=== PATIENT | male | born 1975 | race Caucasian/White ===

== ENCOUNTER 2019-12-24 06:06 | Emergency (ER) | payer OTHER ==
[~2019-12-24] VITALS: Ht 180.3 cm; Wt 109.0 kg
[2019-12-24] MEDS ORDERED: BENA20TA82 PO (07:02)
[2019-12-24] MEDS ORDERED: BUSP10TA11 PO (07:02)
[2019-12-24] MEDS ORDERED: ESCI20TA45 PO (07:02)
[2019-12-24] MEDS ORDERED: LORA-269 PO (07:03)
[2019-12-24] MEDS ORDERED: SIMV5TAB58 PO (07:07)
[2019-12-24] MEDS ORDERED: FLO0.4C PO (07:07)
[2019-12-24] MEDS ORDERED: TEMA15CA5 PO (07:07)
[2019-12-24 07:12] VITALS: BP 146/85
== END 2019-12-24 07:15 | disposition home or self-care (01) ==
LOC: ER 06:07
DX: I10 Essential (primary) hypertension (principal); E78.00 Pure hypercholesterolemia, unspecified; Z88.8 Allergy status to other drugs, medicaments and biological substances; Z79.899 Other long term (current) drug therapy
CPT/HCPCS: 93005; 99283

== ENCOUNTER 2025-10-14 04:26 | Emergency (ER) | payer OTHER ==
[~2025-10-14] VITALS: Ht 180.3 cm; Wt 100.0 kg
[~2025-10-14 04:26] MED LIST: BENA20TA82 PO; BUSP10TA11 PO; ESCI20TA39 PO; LORA-269 PO; SIMV5TAB58 PO; TAMS-55 PO; TEMA15CA5 PO
--- NOTE | 2025-10-14 05:08 | VISIT NOTE ---
ED Rapid Medical Assessment History 50-year-old male presents for evaluation of left-sided chest pain/left upper quadrant abdominal pain that woke him from sleep at 2:00 a.m., proximally 3 hours prior to arrival. He states that he ate a 10 mg THC gummy shortly before dinner, got lunches, ate a lot of junk food including calsone, drank a soda, and had some ice cream. He describes pain as dull and achy, can compares it to brain freeze. No palliating or aggravating factors. Did not attempt to treat it with a anything other than Tums. The Tums did not help. Denies shortness a breath. Exam: Physical examination: GENERAL: Awake, alert, oriented, GCS 15, no apparent distress, non-toxic appearing, answers questions, follows commands appropriately. HEENT: Atraumatic, normocephalic, pupils equal, extraocular muscles intact Active gross movements, sclerae anicteric, mucus membranes moist, no stridor. NECK: Midline, no JVD CARDIOVASCULAR: Good skin perfusion without evidence of pallor, mottling. PULMONARY: Nonlabored, symmetric chest rise, no audible wheezing, no accessory muscle use, no respiratory distress, speaking in full sentences. GASTROINTESTINAL: Not distended. NEUROLOGIC: Lucid with normal mental status. Normal facial symmetry. Moves all extremities symmetrically and with purpose. No truncal ataxia. Speech is fluid without evidence of dysarthria or aphasia, no focal deficits appreciated. EXTREMITIES: Acute deformities Skin: warm, dry PSYCHIATRIC: Normal affect, normal insight, normal concentration. Focused exam: [] Assessment and Plan With respect to her abdominal pain, Differential diagnosis considered includes acute appendicitis, acute cholecystitis, pancreatitis, gastritis, PUD, diverticulitis, mesenteric ischemia, abdominal aortic aneurysm, bowel obstruction, enteritis, colitis, fecal impaction, volvulus, IBS, inflammatory bowel disease, specific food intolerance, peritonitis, perforated viscous, malignancy, UTI, abscess, and abdominal pain NOS. History, physical exam, and workup exclude many of the more serious causes listed above. With a respect to chest pain, Differential diagnosis considered includes chest wall pain, pleurisy, pneumonia, pulmonary embolus, GERD, esophagitis, gastritis, anxiety, stress reaction, costochondritis, acute coronary syndrome, aortic dissection, pericarditis, myocarditis, or pneumothorax. Aortic/great vessels dissection was considered but it is unlikely based on absence of ripping, tearing, migratory chest pain, absence of syncope or focal neurologic deficits, physical examination indicating equal and symmetric pulses. HILLARY MARY DO Oct 14, 2025 05:08
[2025-10-14 05:14] LABS: MEAN PLATELET VOLUME 8.0 FL (7.4-10.4); RED CELL DISTRIBUTION WIDTH 13.0 % (11.5-14.5)
--- NOTE | 2025-10-14 05:16 | ELECTROCARDIOGRAPH REPORT ---
[facility] Test Date: 2025-10-14 Test Time: 05:12:49 Pat Name: HILARIO HERNANDEZ Department: [facility] Patient ID: [id number] Room: Gender: M [employer] Chair: : 1975 Requested By: HILLARY MARY Order Number: [id number] Reading MD: Dr. CYRUS Villeda Measurements Intervals [place] Rate: 69 P: 75 WI: 191 QRS: 78 QRSD: 106 T: 43 QT: 390 QTc: 418 Interpretive Statements Sinus rhythm Electronically Signed On 10-15-2025 13:08:[address] CYRUS Villeda Please click the below link to view image of tracing.
[2025-10-14] MEDS: mag hydrox/Alum hydrox/simeth 30ml oral suspension PO ONE (05:23)
[2025-10-14] MEDS: LIDOcaine 2% Viscous 15ml cup MM ONE (05:23)
[2025-10-14] MEDS: normal saline 1000ML IV soln IVB ONE (05:26)
[2025-10-14 05:31] LABS: CREATININE 0.83 MG/DL (0.60-1.10); TOTAL CARBON DIOXIDE 30.3 MMOL/L (24-32); eCRCL 112 ML/MIN; eGFR > 90 ML/MIN
[2025-10-14 05:37] LABS: PRO BRAIN NATRIURETIC PEPTIDE 36 PG/ML (0-125)
[2025-10-14] MEDS ORDERED: iohexol 300mg/ml 100ml inj. ONE (05:38)
--- NOTE | 2025-10-14 06:07 | RADIOLOGY REPORT ---
CHEST RADIOGRAPH Indication: chest pain Technique: Single frontal view of the chest was obtained COMPARISON: None FINDINGS: Lines and Tubes: None Lungs: Clear Pleura: No effusion. No pneumothorax. Cardiomediastinal contours: Unremarkable Bones: Unremarkable IMPRESSION: 1. No acute disease.
--- NOTE | 2025-10-14 06:24 | RADIOLOGY REPORT ---
Exam: CT CT ABDOMEN PELVIS W/ IV CONTRAST History: LUQ pain COMPARISON: None Technique: Multidetector spiral CT of the abdomen and pelvis was performed from lung bases to pubic symphysis. Intravenous contrast was administered during this examination. Portal venous imaging was obtained. Axial, coronal and sagittal multiplanar reformats were performed by the technologist on a separate workstation. Radiation Dose : 1. Abdomen/Pelvis: CTDIvol 35.13 mGy, DLP 2116.35 mGy*cm. CONTRAST: Type of contrast: Omnipaque 300 Contrast injected: 100 ml Findings: Lung Bases: No acute or significant lung base finding. Left basilar atelectasis. Normal heart size. No pleural or pericardial effusion. Liver: The liver is normal in size. No focal lesions. Normal hepatic vascular enhancement. Gallbladder and Biliary Tree: Cholelithiasis. Spleen: Unremarkable Pancreas: The pancreas is normal in appearance without focal lesions or abnormal enhancement. Adrenal Glands: Unremarkable Kidneys: No nephrolithiasis or hydronephrosis. 1.7 cm left inferior pole renal cortical cysts. Bladder: Unremarkable Bowel: The stomach is grossly normal in appearance. Retained colorectal stool. Small bowel and colon are otherwise normal in caliber and distribution. The appendix is normal. Ascites: Absent Lymphadenopathy: No mesenteric, retroperitoneal or periportal lymphadenopathy. Abdominal Wall and Mesentery: Unremarkable. Vasculature: The visualized abdominal aorta is normal in size and caliber. Abdominal and pelvic vessels demonstrate normal enhancement. Pelvic Organs: Unremarkable. Bilateral fat containing inguinal hernias. Musculoskeletal: No aggressive focal bony lesions, acute fractures or dislocation. IMPRESSION: 1. No acute abdominal or pelvic finding. 2. Cholelithiasis. 3. Retained colorectal stool. Radiation optimization: All CT scans at this facility use at least one of these dose optimization techniques: automated exposure control mA and/or kV adjustment per patient size (includes targeted exams where dose is matched to clinical indication) or iterative reconstruction.
[2025-10-14 06:46] LABS: LEUKOCYTE ESTERASE ,URINE NEGATIVE (Neg); OCCULT BLOOD,URINE NEGATIVE (Neg)
[2025-10-14 07:00] LABS: UA COLLECTION TYPE CLN CATCH MIDSTREAM
[2025-10-14 07:02] LABS: MUCUS STRANDS NONE SEEN /LPF (Neg); NITRITES, URINE NEGATIVE (Neg); SQUAMOUS EPITHELIAL CELL,UR NONE SEEN /LPF (FEW)
[2025-10-14 07:03] LABS: AMORPHOUS PHOSPHATES 1+
--- NOTE | 2025-10-14 08:22 | Physician Documentation ---
History of Present Illness Chief Complaint: Abdominal Pain Stated Complaint: UPPER ABDOMINAL DISCOMFORT Time Seen by MD: 07:52 Primary Medical Doctor: none Mode of Arrival: POV HPI The patient is a 50-year-old male with a history of recurrent constipation who presents with abdominal pain over the past day. He reports having had a small bowel movement this morning. He also reports eating a generally poor diet with lots of highly processed foods and lots of sugary foods. Medication Reconciliation Allergies: Coded Allergies: formaldehyde (Verified Allergy, Severe, 10/14/25) nickel (Verified Allergy, Severe, 10/14/25) cefprozil (Verified Allergy, Unknown, 10/14/25) Uncoded Allergies: NEOPRENE (Allergy, Severe, 12/24/19) Scheduled Benazepril Hcl* (Lotensin*), 1 TAB PO BID, (Reported) Lorazepam (Ativan), 1 TAB PO Q12H, (Reported) Simvastatin* (Zocor*), 1 TAB PO HS, (Reported) Tamsulosin Hcl* (Flomax*), 1 CAP PO DAILY, (Reported) Scheduled PRN Buspirone Hcl* (Buspar*), 1 TAB PO BID PRN for anxiety, (Reported) Miscellaneous Medications Escitalopram Oxalate (Escitalopram Oxalate), 20 MG PO, (Reported) Temazepam (Restoril), 15 MG PO, (Reported) Past Medical History Past Medical History: High Cholesterol, Hypertension Past Surgical History: no surgical history Smoking Status: Never smoker Alcohol Use: None Drug Use: none Lives with: Spouse Lives In: Home Occupation: employed Review of Systems ROS Constitutional: Denies chills, fatigue, fever, weight gain or weight loss. HEENT: Denies hearing loss, sinus pressure or visual changes. Respiratory: Denies cough, shortness of breath or wheezing. Cardiovascular: Denies chest pain, pain while walking (claudication), edema or palpitations. Gastrointestinal: Abdominal pain and constipation. No blood in stool, diarrhea, heartburn, loss of appetite, nausea or vomiting. Genitourinary: Denies painful urination (dysuria), excessive amount of urine (polyuria) or urinary frequency. Metabolic/Endocrine: Denies cold intolerance, heat intolerance, excessive thirst (polydipsia) or excessive hunger (polyphagia). Neurological: Denies dizziness, extremity numbness, extremity weakness, headaches, seizures or tremors. Psychiatric: Denies anxiety or depression. Integumentary: Denies breast discharge, breast lump, hives, mole change(s), rash or skin lesion. Musculoskeletal: Denies back pain, joint pain, joint swelling or neck pain. Hematologic: Denies easily bleeding, easily bruises, lymphedema or issues with blood clots. Immunologic: Denies food allergies or seasonal allergies. Physical Exam Vital Signs: Temperature: 97.3, Source: Temporal, Heart Rate: 77, Respiratory Rate: 18, BP: 150/78, Pulse Oximetry: 97, Weight: 100.000 Oxygen Flow Rate: 0 Physical Exam Physical Exam Vitals and nursing note reviewed. Constitutional: General: Patient is awake, alert, oriented x 4 in no acute distress and well appearing. Speech is clear and lucid. Appearance: Normal appearance. Patient is not ill-appearing, toxic-appearing or diaphoretic. HENT: Head: Normocephalic and atraumatic. Mouth/Throat: Mouth: Mucous membranes are moist. Pharynx: Oropharynx is clear. Eyes: General: No scleral icterus. Extraocular Movements: Extraocular movements intact. Pupils: Pupils are equal, round, and reactive to light. Neck: Supple, no Kernig or Brudzinski sign. Cardiovascular: Rate and Rhythm: Normal rate and regular rhythm. Heart sounds: No murmur heard. Pulmonary: Effort: No respiratory distress. Breath sounds: No wheezing, rhonchi or rales. Abdominal: General: There is no distension. Palpations: There is no fluid wave, hepatomegaly or mass. Tenderness: There is no abdominal tenderness. There is no guarding. Musculoskeletal: General: No swelling or deformity. Skin: Coloration: Skin is not jaundiced. Findings: No erythema or rash. Neurological: Mental Status: Patient is alert. Progress Results/Orders Results/Orders Medications Received in ER Medications (Trade) Dose Ordered Sig/Lisbeth Route PRN Reason Start Time Stop Time Status Last Admin Dose Admin (0.9% sodium chloride (NS) 1000ml IV soln) 1,000 ml ONCE ONCE IVB 10/14/25 05:05 10/14/25 05:07 DC 10/14/25 05:26 1,000 ML (Maalox oral suspension) 30 ml ONCE ONCE PO 10/14/25 05:05 10/14/25 05:07 DC 10/14/25 05:23 30 ML (Bentyl capsule) 20 mg ONCE ONCE PO 10/14/25 05:05 10/14/25 05:07 DC 10/14/25 05:24 20 MG (Compazine inj) 10 mg ONCE ONCE IV 10/14/25 05:05 10/14/25 05:07 DC 10/14/25 05:26 10 MG (Xylocaine 2% Viscous 15mL cup) 20 ml ONCE ONCE MM 10/14/25 05:05 10/14/25 05:07 DC 10/14/25 05:23 20 ML Vital Signs 10/14/25 10/14/25 10/14/25 10/14/25 04:29 04:51 05:55 06:45 Temp 97.3 Pulse 67 61 75 Resp 15 16 18 16 B/P (MAP) 162/95 161/95 (117) 162/91 (114) Pulse Ox 100 98 97 O2 Flow Rate 0 0 10/14/25 07:49 Pulse 77 Resp 18 B/P (MAP) 150/78 (102) Pulse Ox 97 O2 Flow Rate 0 Laboratory Tests Test 10/14/25 05:05 10/14/25 06:08 10/14/25 07:17 White Blood Count 5.9 Red Blood Count 5.28 Hemoglobin 16.0 Hematocrit 46.8 Mean Corpuscular Volume 88.7 Mean Corpuscular Hemoglobin 30.4 Mean Corpuscular Hemoglobin Concent 34.2 Red Cell Distribution Width 13.0 Platelet Count 256 Mean Platelet Volume 8.0 Neutrophils (%) (Auto) 67.6 Lymphocytes (%) (Auto) 22.5 Monocytes (%) (Auto) 7.2 Eosinophils (%) (Auto) 1.3 Basophils (%) (Auto) 1.4 H Neutrophils # (Auto) 4.0 Lymphocytes # (Auto) 1.3 Monocytes # (Auto) 0.4 Eosinophils # (Auto) 0.1 Basophils # (Auto) 0.1 CBC Comment Sodium Level 142 Potassium Level 3.8 Chloride Level 105 Carbon Dioxide Level 30.3 Anion Gap 7 L Blood Urea Nitrogen 10 Creatinine 0.83 Estimated GFR/1.73 m2 > 90 BUN/Creatinine Ratio 12.0 Glucose Level 176 H Calcium Level 8.8 Magnesium Level 2.0 Total Bilirubin 0.5 Aspartate Amino Transf (AST/SGOT) 17 Alanine Aminotransferase (ALT/SGPT) 38 Alkaline Phosphatase 88 Troponin I High Sensitivity 75 Pro-B-Type Natriuretic Peptide 36 Total Protein 7.5 Albumin 4.0 Globulin 3.5 Albumin/Globulin Ratio 1.1 Lipase 34 Chemistry Comments Urine Specimen Description Cln catch midstream Urine Color Yellow Urine Clarity Slightly cloudy Urine pH 7.5 Urine Specific [place] 1.015 Urine Protein Negative Urine Glucose (UA) 250 H Urine Ketones Negative Urine Occult Blood Negative Urine Nitrite Negative Urine Bilirubin Negative Urine Urobilinogen 0.2 Urine Leukocyte Esterase Negative Urine RBC None seen Urine WBC None seen Urine Squamous Epithelial Cells None seen Urine Amorphous Phosphates 1+ Urine Bacteria None seen Urine Mucus None seen Urine Culture Indicated Not ind Volume Urine Centrifuged 10 ml Urine Comment Medical Decision Making Additional information obtaine: family Findings Differential Diagnosis Abdominal Pain include (but is not limited to) Esophagitis, Peptic Ulcer Disease, Perforated Ulcer, GERD, Pancreatitis, Gastritis, ACS, Esophageal Stricture, Zenker's Diverticulum and Cyclic Vomiting Syndrome. Physical examination was performed and showed no evidence of appendicitis or peritonitis. Labs were performed to evaluate for evidence of electrolyte abnormalities such as hyponatremia, hyperglycemia. Labs including LFT's and lipase were performed to evaluate for evidence of pancreatitis or hepatitis. Urine shows no evidence of infection. Radiology studies, ultrasound abdomen was performed to evaluate for biliary pathology or cholecystitis and shows no acute intra-abdominal pathology. Patient improved in the ER with IV pain medications, IV antiemetics, and IV hydration. CT scan showed retained colorectal stool. Differential Dx:Considerations: Aortic dissection, Appendicitis, Bowel obstruction, Cholangitis, Cholelithasis, Constipation, Diverticular disease, Inflammatory BD, Ischemic bowel, Pancreatitis, Urinary tract infection Departure Disposition: HOME / SELF CARE / HOMELESS Impression: Primary Impression: Constipation Condition: Stable Discharge Instructions: Chronic Constipation, Constipation, Adult Additional Instructions: You have been evaluated for abdominal pain and it appears this is due to ret ained colorectal stool (constipation). Please obtain magnesium citrate at the pharmacy and follow the directions. It is important that you generally improve your diet by avoiding processed foods and sugary foods. A healthy diet consisting of REAL FOOD will be the baird to half-way improvement. Referrals: NO PRIMARY CARE PROVIDER (PCP) Education Educated: Patient Educated regarding: diagnosis, treatment, prognosis, need for follow up Signature Scribe Signature: . Attestation: ROWENA CLARK MD Oct 14, 2025 08:22
[2025-10-14 08:35] VITALS: PULSE 63
[2025-10-14 08:52] VITALS: BP 152/82; RESP 16; TEMP 97.3; O2SAT 95
== END 2025-10-14 09:00 | disposition home or self-care (01) ==
LOC: ER 04:26
DX: K59.00 Constipation, unspecified (principal); I10 Essential (primary) hypertension; E78.00 Pure hypercholesterolemia, unspecified; Z88.8 Allergy status to other drugs, medicaments and biological substances; Z79.899 Other long term (current) drug therapy
CPT/HCPCS: 36415; 71045; 74177; 80053; 81001; 83690; 83735; 83880; 84484; 85025; 93005; 96361; 96374; 99285; J0780; J7030; Q9967